=== PATIENT | female | born 1950 | race Caucasian/White ===

== ENCOUNTER 2019-06-18 12:24 | Emergency (ER) | payer MEDICARE ==
[2019-06-18] MEDS ORDERED: ACETAMINOPHEN-CODEINE 300/30MG TAB ONE (13:38)
== END 2019-06-18 14:54 | disposition home or self-care (01) ==
LOC: EDH 12:24
DX: S80.02XA Contusion of left knee, initial encounter (principal); I10 Essential (primary) hypertension; G62.9 Polyneuropathy, unspecified; Z90.49 Acquired absence of other specified parts of digestive tract; W10.8XXA Fall (on) (from) other stairs and steps, initial encounter; Y93.89 Activity, other specified; Y92.89 Other specified places as the place of occurrence of the external cause; Y99.8 Other external cause status
CPT/HCPCS: 29505; 73562; 73590